=== PATIENT | female | born 1935 | race Caucasian/White ===

== ENCOUNTER → 2017-02-16 10:09 | Outpatient (CLI) | payer MEDICARE, BC | END | disposition home or self-care (01) | LOC: D.RT 10:09 | DX: R06.00 Dyspnea, unspecified (principal) ==

== ENCOUNTER → 2019-05-13 13:29 | Outpatient (CLI) | payer MEDICARE, BC ==
--- NOTE | 2019-05-14 11:25 | EC ---
PATIENT:ANDI GARCIA DATE OF SERVICE: 05/13/19 SEX: F MEDICAL RECORD: [id number] DATE OF : 39 LOCATION:D.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 Ao 126 cm/sec RVOT 60 cm/sec RA cm/sec PA 90 cm/sec AV Gradient Peak 6.36 mmHg AV Mean 3.14 mmHg AV Area 3.0 cm MV Gradient Peak 3.48 mmHg MV Mean 1.32 mmHg MV Area cm COMMENTS: Irrigation Teacher: 2 LUIS MANUEL GUNDERSON Insurance Advisor: 1 Dr. Gonsalez TAPE# PACS Pericardial Effusion N DATE OF SERVICE: 05/13/2019 FINDINGS: 1. Left ventricular chamber size is within normal limits. Left ventricular systolic function is normal. Overall ejection fraction estimated 65% to 70%. 2. Left atrium, right atrium, and right ventricle chamber sizes are within normal limits. 3. Valvular structures have normal structure and motion. 4. Doppler interrogation reveals mild aortic insufficiency, mild mitral regurgitation, mild tricuspid regurgitation, no other valvular insufficiency or ECHOCARDIOGRAM REPORT [id number] ANDI GARCIA stenosis. 5. No evidence of pericardial effusion or left ventricular thrombus. TRANSINT:[id number] Voice Confirmation ID: [id number] DOCUMENT ID: [id number] IFEOMA GONSALEZ MD at 1125 CC: [id number] DICTATION DATE: 05/13/19 170 INSTALLER TECHNICIAN: 05/13/19 [id number] DEP CLI 05/13/19 [place] [id number]
== END | disposition home or self-care (01) ==
LOC: D.HCCECHO 13:29
PROVIDERS: ATTEND Internal Medicine Interventional Cardiology
DX: I34.0 Nonrheumatic mitral (valve) insufficiency (principal)